=== PATIENT | female | born 1945 | race Caucasian/White ===

== ENCOUNTER 2024-01-08 03:26 | Emergency (ER) | payer MEDICARE, SELFPAY ==
[2024-01-08 03:29] VITALS: BP 147/80; PULSE 74; RESP 16; TEMP 36.6; O2SAT 95; BMI 33.8
--- NOTE | 2024-01-08 03:37 | ECG_ITS ---
APPROVED REPORT Exam: Resting ECG HR:72 bpm ECG Measurements Heart Rate 72 AXES IN 221 P 85 QRSd 110 QRS 32 QT 410 T 53 QTc 435 Conclusion SINUS RHYTHM WITH FIRST DEGREE AV BLOCK INFERIOR MYOCARDIAL INFARCTION , OF INDETERMINATE AGE [40+ ms Q WAVE AND/OR ST/T ABNORMALITY IN II/aVF] ABNORMAL ECG UNCONFIRMED REPORT Electronically signed by : JONAS FARNSWORTH, 01/08/2024 06:50:26
--- NOTE | 2024-01-08 03:39 | ED_ITS ---
Discharge Plan Disposition Patient Disposition: Home, Self-Care Referrals Follow up/Referrals: Provider,Referral, MD [Primary Care Provider] - See instructions Activity Restrictions/Add. Instructions Additional Instructions/Restrictions: Please follow-up with your primary care provider. Please return to the emergency department if you develop any new or worsening symptoms or become concerned for your health. Clinical Impressions Clinical Impression: Paroxysmal atrial fibrillation Discharge ED Provider: Merlin Redding Adult HPI General Chief complaint: Recheck/Abnormal Lab/Rx Stated complaint: afib Time Seen by Provider: 01/08/24 03:36 History of Present Illness HPI narrative: 78-year-old female with history of paroxysmal A-fib on metoprolol and flecainide presents for episode of atrial fibrillation. Reports that she had a stroke in the past and is always very sensitive to her episodes of A-fib. She has not been in A-fib in at least few months or maybe longer. She is on Eliquis. She reports that this started a few hours ago. She took her extra metoprolol and Xanax which usually helps but initially did not fix it. Approximately 10 minutes before arrival to the ER she converted to sinus rhythm however. She denies any chest pain or any other symptoms. She reports chronic joint pain for which she was started on steroids yesterday. Related Data Allergies Allergy/AdvReac Type Severity Reaction Status Date / Time epinephrine AdvReac Intermediate afib Verified 01/08/24 04:00 semaglutide [From Ozempic] AdvReac Intermediate afib Verified 01/08/24 04:00 [facility] Disclaimer: The information contained in this section may have been updated after the patient was seen, as this information can be updated by other users. Social History Smoking Status: Former smoker alcohol intake: never current occupational status: retired Travel in the last 8 weeks: None ROS Obtained: Yes All systems reviewed & no additional complaints except as documented Physical Exam General General appearance: alert and in no apparent distress Head Head exam: atraumatic and normocephalic Eye Eye exam: Present normal appearance, PERRL and EOMI ENT ENT exam: Present normal oropharynx and normal external ear exam Neck Neck exam: Present normal inspection and full ROM Chest Chest inspection: Present normal inspection and symmetric chest wall rise; Absent tenderness Respiratory Respiratory exam: Present normal lung sounds bilaterally; Absent respiratory distress Cardiovascular Cardiovascular exam: Present regular rate and normal rhythm Abdominal Exam Abdominal exam: Present soft; Absent distention, tenderness or guarding Extremities Exam Extremities exam: Present normal inspection; Absent edema or joint swelling Back Exam Back exam: Present normal inspection; Absent tenderness Neurological Exam Neurological exam: Present alert and oriented X3; Absent motor sensory deficit Psychiatric Psychiatric exam: Present normal affect and normal mood Skin Skin exam: Present warm, dry and normal color Lymphatic Lymphatic Findings: no adenopathy Medical Decision Making Medical Records Medical records reviewed: Yes I reviewed the patient's medical records. [place] Inquiry Pt receiving controlled substance: No [place] was queried for this patient: No Vital Signs: 01/08/24 03:29 Temperature 97.9 F Temperature Source Oral Pulse Rate [Apical] 74 Respiratory Rate 16 Blood Pressure [Right Arm] 147/80 H Blood Pressure Mean [Right Arm] 102 Blood Pressure Source [Right Arm] Automatic Cuff 02 Sat by Pulse Oximetry 95 Oxygen Delivery Method Room Air Lab Data Lab results reviewed: Yes I reviewed the patient's lab results. Lab Results 01/08/24 03:53: WBC 6.3, RBC 4.51, Hgb 15.5, Hct 45.5, MCV 101.0 H, MCH 34.5 H, MCHC 34.1, RDW 14.4, Plt Count 214, MPV 8.0, Neut % (Auto) 86.2 H, Lymph % (Auto) 10.0, [place] % (Auto) 2.3, Eos % (Auto) 0.9, Baso % (Auto) 0.6, Neut # (Auto) 5.4, Lymph # (Auto) 0.6 L, [place] # (Auto) 0.1, Eos # (Auto) 0.1, Baso # (Auto) 0.0, Total Counted 100, Neutrophils % (Manual) 89 H, Lymphocytes % (Manual) 8 L, Monocytes % (Manual) 3, Platelet Estimate Normal, Macrocytosis 1+, Sodium 139, Potassium 4.3, Chloride 107, Carbon Dioxide 23, Anion Gap 13.3, BUN 16, Creatinine 0.50 L, Estimated Creat Clear 61, Estimated GFR 120, Est GFR ( Amer) 145, Glucose 195 H, Calcium 9.7, Magnesium 1.9, Total Bilirubin 0.5, AST 33, ALT 34, Alkaline Phosphatase 84, Total Protein 7.1, Albumin 4.2, Globulin 2.9, Albumin/Globulin Ratio 1.4 01/08/24 03:53 01/08/24 03:53 Orders (Tests/Meds): ORDERS Category Date Time Status CBC w/Auto Diff [Complete Blood Count Auto Diff] Stat Lab 01/08/24 03:53 Completed CMP [Comprehensive Metabolic Panel] Stat Lab 01/08/24 03:53 Completed Magnesium Stat Lab 01/08/24 03:53 Completed ECG Data Tracing #1: I reviewed this ECG and interpreted as documented below: Sinus rhythm with first-degree AV block, Q-wave in lead III, no concerning ST or T wave changes, ECG initial impression date: 01/08/24 ECG initial impression time: 03:38 Medical Decision Narrative: 38-year-old female with history of paroxysmal A-fib, on Eliquis, metoprolol, flecainide, presents with a now resolved episode of paroxysmal atrial fibrillation at home. Her heart rate never got above 107 according to the monitor she has. The episode resolved with metoprolol and Xanax at home. EKG in ED shows sinus rhythm with regular rate. She was recently started on steroids for joint pain which may be the inciting factor. We obtain basic labs to assess for any electrolyte derangement, CBC and CMP are unremarkable on my interpretation. No significant electrolyte derangement. This showed mild hyperglycemia which is expected in the setting of recent steroid use. These findings were communicated to patient she was discharged in stable condition. Procedures Risk/Benefits of Procedure(s) Were Explained: Yes Critical Care Critical Care Time Critical Care Time: No
[2024-01-08 04:02] LABS: Basophils % 0.6 % (0.1-2.0); Eosinophils # 0.1 K/mm3 (0.0-0.4); Eosinophils % 0.9 % (0.1-12.0); Hematocrit 45.5 % (37.0-47.0); Hemoglobin 15.5 g/dL (12.2-16.2); Lymphocytes # 0.6 K/mm3 (0.7-4.5); MANUAL DIFFERENTIAL MANUAL DIFFERENTIAL (MANUAL DIFF); Mean Corpuscular HGB Conc 34.1 g/dL (31.8-35.4); Mean Corpuscular Hemoglobin 34.5 pg (27.0-31.2); Monocytes # 0.1 K/mm3 (0.1-1.0); Monocytes % 2.3 % (1.7-9.3); Neutrophils # 5.4 K/mm3 (1.8-7.8); Neutrophils % 86.2 % (37.0-80.0); Platelet Count 214 K/mm3 (142-424); Red Blood Count 4.51 M/mm3 (4.20-5.40); Red Cell Distribution Width 14.4 % (11.5-17.5); White Blood Count 6.3 K/mm3 (4.8-10.8)
[2024-01-08 04:09] LABS: Alanine Aminotransferase 34 U/L (12-78); Albumin Level 4.2 g/dl (3.5-5.0); Albumin/Globulin Ratio 1.4 (1.1-1.8); Alkaline Phosphatase 84 U/L (38-126); Anion Gap 13.3 mEq/L (5-15); Aspartate Amino Transferase 33 U/L (14-36); Bilirubin,Total 0.5 mg/dl (0.2-1.3); Blood Urea Nitrogen 16 mg/dl (7-17); Calcium 9.7 mg/dl (8.4-10.2); Carbon Dioxide 23 mmol/L (22.0-30.0); Chloride 107 mmol/L (98-107); Creatinine Clearance Estimated 61 mL/min (50-200); Estimated Glomerular Filt Rate 120 ml/min (>60); GFR (African American) 145 ML/MIN (>60); Globulin 2.9 g/dL (1.3-3.2); Glucose 195 mg/dl (74-100); Magnesium 1.9 mg/dl (1.6-2.3); Potassium 4.3 mmoL/L (3.5-5.1); Sodium 139 mmol/L (136-145); Total Protein,Serum 7.1 g/dl (6.3-8.2)
[2024-01-08 04:18] LABS: Lymphocytes % 8 % (10-50); Macrocytosis 1+; Monocytes % 3 % (2-9); Neutrophils % 89 % (42-76); Platelet Estimate Normal; Total Cells Counted 100
[2024-01-08 04:28] VITALS: BP 133/67; PULSE 66; RESP 16; TEMP 36.8; O2SAT 95
== END 2024-01-08 04:29 | disposition home or self-care (01) ==
PROVIDERS: Emergency Provider Emergency Medicine
DX: I48.0 Paroxysmal atrial fibrillation (principal); I44.0 Atrioventricular block, first degree; Z79.01 Long term (current) use of anticoagulants
CPT/HCPCS: 80053; 83735; 85007; 85025; 85027; 93005; 99283